=== PATIENT | male | born 1965 | race Caucasian/White ===

== ENCOUNTER → 2018-02-09 | Outpatient (CLI) | payer BC ==
--- NOTE | 2018-02-09 23:00 | CONS ---
CONSULTATION REASON FOR CONSULTATION: Sleep apnea. Mt is 52. He is coming in due to concerns about obstructive sleep apnea. He is having loud snoring. He is noted to stop breathing, according to his . He wakes up occasionally gasping for air. He has excessive daytime sleepiness during the day. His condition has gradually been getting worse, as the patient has gained around 20 to 30 pounds over the past few years. He goes to bed at 8:30 p.m., wakes up at 5:30 a.m. in the morning. On weekends he goes to bed around 10 p.m. and wakes up at 6 a.m. in the morning. He is averaging around 7 to 8 hours of sleep; however, despite that he has been quite fatigued and sleepy during the day. He wakes up tired and he can easily go back to sleep. He is having more difficulties with concentration and memory, and his psychomotor vigilance has been also impaired. He has been having difficulties in staying awake at work, especially during meetings. He does a lot of driving; however, he pulls over any time he feels drowsy and sleepy. He has never been involved in a motor vehicle accident. He travels a lot due to his job. He has been to [place] and he has been also to [place]. He has also traveled locally. No history of any severe jet lag. His Lincoln score is 20. His weight is up, as mentioned. No sleep paralysis, hallucinations or cataplexy. Otherwise he is a healthy 52-year-old male patient. PAST MEDICAL HISTORY: 1. Obesity. 2. Hypertension. 3. Hyperlipidemia. PAST SURGICAL HISTORY: Negative. MEDICATIONS: Medication includes: 1. Hydrochlorothiazide 12.5 mg p.o. daily. 2. 7.5 mg p.o. daily. 3. Lipitor 20 mg p.o. daily. SOCIAL HISTORY: The patient is a nonsmoker. No history of alcoholism. No history of IV drugs. FAMILY HISTORY: Negative for sleep apnea. REVIEW OF SYSTEMS: Twelve-point review of systems was done. Positive findings were all mentioned above in the history of present illness. He has no difficulties with blood pressure, chest pain, palpitation or heartburn. No seizure disorder. No history of stroke. No history of any joint pains or fibromyalgia. No focal neurological deficit. No weakness. No altered mentation. No chronic infection. No history of malignancy. No history of headaches. No acid reflux. No ulcers. No wounds. No liver problems. No diabetes or any other endocrinologic problems other than hyperlipidemia. PHYSICAL EXAMINATION: BP is 138/86, pulse 96, respirations 16, temperature 98.8, saturation 96% on room air. Weight is 271. Height is 5 feet 10 inches. Neck size 17-1/2 inches. GENERAL APPEARANCE: Calm, comfortable. Head is atraumatic, normocephalic. NECK: Supple. No JVD. No goiter or neck masses. He has got a slight overbite with Mallampati class III. LUNGS: Clear to auscultation. HEART: Heart sounds are regular rate and rhythm. Normal S1, S2. No S3, S4. No murmurs. ABDOMEN: Soft, nontender. No organomegaly. EXTREMITIES: No edema. No cyanosis or clubbing. NEUROLOGIC: Alert and oriented x3. There is no focal neurological deficit. IMPRESSION: 1. Hypersomnia. Lincoln score of 20. Rule out underlying obstructive sleep apnea based on history and anatomic features. 2. Obesity with a body mass index of 38.8. 3. Mallampati class III. 4. Hypertension. 5. Hyperlipidemia. PLAN: 1. Encourage weight loss. 2. Implement good sleep hygiene measures. 3. Proceed with a sleep study. Will proceed with a home sleep study, knowing that the patient has a high clinical suspicion for obstructive sleep apnea, and consider treatment accordingly. We will continue to follow. MMODL / IJN: [id number] /
== END ==
LOC: SLEEP 13:29
PROVIDERS: ATTEND Internal Medicine Critical Care Medicine
DX: G47.10 Hypersomnia, unspecified (principal); E66.9 Obesity, unspecified; I10 Essential (primary) hypertension; E78.5 Hyperlipidemia, unspecified; Z68.38 Body mass index [BMI] 38.0-38.9, adult; Z79.899 Other long term (current) drug therapy
CPT/HCPCS: 99211

== ENCOUNTER → 2018-05-25 | Outpatient (CLI) | payer BC ==
--- NOTE | 2018-05-25 17:23 | PN ---
PROGRESS NOTE Mt is 53, coming in for a compliancy check. I diagnosed this patient as having severe obstructive sleep apnea. The patient underwent a home sleep study and he was found to have an AHI of 40.6, consistent with severe disease. The patient was offered CPAP therapy at a pressure of 12 cm of water. He is using an AirFit P10 medium-sized nose pillow. On today's evaluation the patient reports marked improvement in his sleep quality. His sleep quality has improved and the patient is waking up refreshed and alert during the day. No major hypersomnia or sleepiness during the day. His [place] score has dropped down to 7. He feels great; he feels more energy; and he does not have the need to fall asleep or take any naps during the day. Based on the compliance data, the patient has been averaging around 5.7 hours of CPAP use per night. His mask fit is at 100%. His AHI while on treatment is down to 1, consistent with successful therapy. He has absolutely no complaints for now. REVIEW OF SYSTEMS: Fourteen-point review of systems was done. Positive findings were all mentioned above in the history of present illness. No nasal congestion. No oral dryness. No confusion. No altered mentation. No falling asleep while driving. No history of any motor vehicle accident because of feeling drowsy or sleepy. No restlessness in the lower extremities. No leg kicks or jerks. No sleepwalking or sleeptalking. No headaches. No cough or sputum production. No chest burning. No heartburn. No nausea or vomiting. No aerophagia. No abdominal distention or flatus. No other positive findings other than the things mentioned above in the history of present illness. PHYSICAL EXAMINATION: BP is 138/84, pulse 94, respirations 16. Temperature is 99.3, [place] score of 7. Weight is 271. Saturation 94% on room air. GENERAL APPEARANCE: Calm, comfortable. Head is atraumatic, normocephalic. NECK: Supple. No JVD. No goiter or neck masses. LUNGS: Clear to auscultation. Heart sounds are regular rate and rhythm. Normal S1, S2. No S3, S4. No murmurs. ABDOMEN: Soft, nontender. No organomegaly. EXTREMITIES: No edema. No cyanosis or clubbing. IMPRESSION: 1. Severe obstructive sleep apnea; apnea/hypopnea index of 40.6. The patient underwent successful CPAP therapy. The patient is currently on a CPAP pressure of 12 cm of water. 2. Hypersomnia, improved. [place] score is down to 7. 3. Hypertension. 4. Hyperlipidemia. 5. Obesity with a body mass index of 38.8. PLAN: 1. Encourage weight loss. 2. Continue CPAP at same level of pressure. 3. Continue using the AirFit P10 medium-sized nose pillows and offer a [place] FX, large size, as an alternative mask for the current nose pillow that he had. 4. Clinically the patient has improved. He is benefitting from the treatment. He is very compliant. He wants to continue with the treatment, as the patient has seen a significant amount of improvement in his sleep quality in general. He is compliant and he meets insurance standards on CPAP use. Will continue his treatment and see him back in a year's time in followup, earlier if needed. MMMARK / KERIN: [id number] /
== END ==
LOC: SLEEP 14:43
PROVIDERS: ATTEND Internal Medicine Critical Care Medicine
DX: G47.33 Obstructive sleep apnea (adult) (pediatric) (principal); I10 Essential (primary) hypertension; E78.5 Hyperlipidemia, unspecified; E66.9 Obesity, unspecified; Z68.38 Body mass index [BMI] 38.0-38.9, adult; Z99.89 Dependence on other enabling machines and devices